=== PATIENT | female | born 1940 | race Two or more races ===

== ENCOUNTER 2025-06-05 14:57 | Emergency (ER) | payer MEDICARE, MEDICAID, SELFPAY ==
[2025-06-05 14:59] VITALS: BMI 27.6
[2025-06-05 15:32] VITALS: BP 142/91; PULSE 67; RESP 18; TEMP 36.3; O2SAT 95
--- NOTE | 2025-06-05 15:43 | EKG_ITS ---
[facility] Test Date: 2025-06-05 Pat Name: MICHAEL GUTIÉRREZ Department: Room: - Gender: Female Delivery Merchandiser: : 1940 Requested By: Enrique Lewis Order Number: [id number] Reading MD: Enrique Lewis Measurements Intervals May Rate: 69 P: 9 CO: 173 QRS: -48 QRSD: 80 T: 29 QT: 369 QTc: 397 Interpretive Statements SINUS RHYTHM LEFT AXIS DEVIATION [QRS AXIS < -30] ANTERIOR MYOCARDIAL INFARCTION , OF INDETERMINATE AGE [40+ ms Q WAVE AND/OR ST/T ABNORMALITY IN V3/V4] INFERIOR MYOCARDIAL INFARCTION , PROBABLY OLD [40+ ms Q WAVE AND/OR ST/T ABNORMALITY IN II/aVF] No previous ECG available for comparison /[id number]/[email or web address]/[id number]
--- NOTE | 2025-06-05 15:43 | XR_ITS ---
Examination: CT brain head without contrast. 2-D sagittal coronal reconstructions Date and time of exam: June 05, 2025, 1649 hours COMPARISON: September 09, 2013 INDICATIONS: Ground-level fall today with injury to the head, head pain CTDI: vol (mGy): 48 DLP: (mGycm): 923 Technique: Multiple CT axial sections of the brain have been obtained, 5 mm slice thickness. Contrast has not been administered. 2-D sagittal, coronal reconstructions have been obtained Low dose protocols were performed. One or more of the following dose reduction techniques were used; automated exposure control, adjustment of the mA and/or KV according to patient size, use of iterative reconstruction technique. Findings: No significant ventricular enlargement. Intra-axial or extra-axial hemorrhage density is not seen. No mass effect or midline shift Basal cisterns are not remarkable. Fourth ventricle is midline. Cranial vault intact. Impression: Negative for acute hemorrhage, mass effect or midline shift
--- NOTE | 2025-06-05 15:52 | XR_ITS ---
Examination: CT maxillofacial, without intravenous contrast. 2-D sagittal reconstructions. 3-D reconstructions. Date and time of exam: June 05, 2025, 1649 hours INDICATIONS: Ground-level fall today with injury to the face, facial pain CTDI: vol (mGy): 26.1 DLP: (mGycm): 475 Technique: Multiple axial images of maxillofacial region, 3.0 mm slice thickness. 2-D sagittal and coronal reconstructions. 3-D reconstructions. Low dose protocols were performed. One or more of the following dose reduction techniques were used; automated exposure control, adjustment of the mA and/or KV according to patient size, use of iterative reconstruction technique. Findings: Frontal bones frontal sinuses intact Orbital rims intact No nasal bone fracture. No depression zygomatic arches. Maxilla and the mandible intact No soft tissue facial hematoma IMPRESSION: No acute facial fracture.
--- NOTE | 2025-06-05 15:52 | XR_ITS ---
Examination: CT cervical spine without contrast 2-D sagittal reconstructions 2-D coronal reconstructions 3-D reconstructions. Exam date and time: June 05, 2025, 1649 hours INDICATIONS: Ground-level fall today with injury to the neck, neck pain CTDI:vol (mGy) 15.8 DLP: (mGycm) 316 Technique: Multiple 2 mm axial sections of the cervical spine have been obtained. The coronal and sagittal reconstructions have been obtained. 3-D reconstructions have been obtained. Low dose protocols were performed. One or more of the following dose reduction techniques were used; automated exposure control, adjustment of the mA and/or KV according to patient size, use of iterative reconstruction technique. Findings: Axial sections demonstrate intact base of the skull. C1 exhibit satisfactory relationship to the odontoid. No acute cervical vertebral body fracture seen. Alignment posterior spinous processes satisfactory. Impression: No acute cervical fracture.
[2025-06-05] MEDS: MECLIZINE HCL 25 MG TABLET PO (16:14)
[2025-06-05 16:41] LABS: Alanine Aminotransferase 25 U/L (10-49); Albumin, Serum 5.2 gm/dL (3.4-4.8); Albumin/Globulin Ratio 1.9 (1.2-2.2); Alkaline Phosphatase 62 U/L (46-116); Anion Gap 9 (7-16); Aspartate Amino Transferase 23 U/L (0-34); BUN/Creatinine Ratio 15 Ratio (12-20); Bilirubin,Total 0.9 mg/dL (0.3-1.2); Blood Urea Nitrogen 20 mg/dL (9-23); Calcium 10.2 mg/dL (8.3-10.6); Calcium (Corrected) 10.2 mg/dL (8.5-10.1); Carbon Dioxide 30.3 mMol/L (20.0-31.0); Chloride 101 mMol/L (98-107); Creatinine (Component) 1.3 mg/dL (0.6-1.3); Estimated Creatinine Clearance 30.3 mL/min (>60); Globulin 2.7 gm/dL (2.3-3.5); Glucose 104 mg/dL (74-106); Osmolality,Calculated 282 (275-295); Potassium 4.3 mMol/L (3.4-5.1); Sodium 140 mMol/L (136-145); Total Protein 7.9 gm/dL (5.7-8.2); Troponin I < 0.020 ng/mL (0.0-0.045); eGFR 41 See Note
[2025-06-05 16:47] LABS: Basophils # (Auto) 0.0 Thou/mm3 (0.0-0.2); Basophils % (Auto) 1 % (0-2.5); Eosinophils # (Auto) 0.3 Thou/mm3 (0.0-0.5); Eosinophils % (Auto) 5 % (0-10); Hematocrit 43.8 % (36.0-46.0); Hemoglobin 15.0 g/dL (12.0-16.0); Immature Granulocytes Auto 0.01 Thou/mm3 (0.00-0.00); Lymphocytes # (Auto) 2.7 Thou/mm3 (1.0-4.8); Lymphocytes % (Auto) 42 % (10-50); Mean Corpuscular HGB Conc 34.2 g/dl (31.0-37.0); Mean Corpuscular Hemoglobin 29.1 pg (25.0-35.0); Mean Corpuscular Volume 85 fL (80-100); Monocytes # (Auto) 0.5 Thou/mm3 (0.0-0.8); Monocytes % (Auto) 7 % (0-12); Neutrophils # (Auto) 3.0 Thou/mm3 (1.8-7.7); Neutrophils % (Auto) 46 % (37-80); Nucleated Red Blood Cell # 0.00 Thou/mm3 (0.00-0.00); Nucleated Red Blood Cell % 0 /100 WBC (0); Platelet Count 329 Thou/mm3 (140-440); RDW Standard Deviation 36.9 fL (36.4-46.3); Red Blood Count 5.16 Miln/mm3 (4.00-5.20); White Blood Count 6.5 Thou/mm3 (3.6-11.0)
--- NOTE | 2025-06-05 17:49 | PD.EDDIZZY ---
ED Dizzyness RME/HPI General Chief Complaint: Dizziness Stated Complaint: DIZZINESS S/P FALL ON Time Seen by Provider: 06/05/25 17:22 Arrival date/time: 06/05/25 14:57 84-year-old female patient with significant history of hypertension, came in for evaluation regarding ground-level fall. Patient sustained a ground-level fall 2 days ago, sustained abrasion to the nose. Patient denies any headache no LOC no neck pain no chest pain no other complaint noted. Patient is ambulatory. Patient is not take any blood thinner. Related Data Home Medications ?Medication ?Instructions ?Recorded ?Confirmed BP MED ##0 09/09/13 losartan 100 mg tablet (Cozaar) 100 mg PO BID #0 tabs 09/19/14 omeprazole 40 mg capsule,delayed QDAY ##0 09/19/14 release Allergies Allergy/AdvReac Type Severity Reaction Status Date / Time NKA* Allergy Uncoded 06/05/25 15:02 Review of Systems Review of Systems Narrative Review of Systems: Review of system reviewed and within normal limits except mentioned in HPI ED Exam Narrative Physical exam: VITAL SIGNS: Reviewed. GENERAL APPEARANCE: Alert and interactive, follows commands, no acute distress, HEAD AND FACE: Abrasion noted to the nose ENT: PERRL, pink conjunctivitis, eyelid no trauma, Mucous membrane moist. NECK: Supple, nontender, no nuchal rigidity. CHEST: No tenderness, no crepitus, no paradoxical movement, no retractions. LUNGS: Clear, well ventilated, symmetric, no rales, no wheezing, no ronchi, no stridor, good breath sounds bilaterally. HEART: Regular rate, regular rhythm, no murmur, no gallops. ABDOMEN: Soft, positive bowel sounds, nondistended, no guarding, nontender, no rebound, no masses, RECTAL: Deferred. GENITAL: Deferred. NEUROLOGICAL: Gross motor function intact sensory function intact, Appropriate for age. MUSCULOSKELETAL: low back nontender, full range of motion. EXTREMITIES: Nontender, full range of motion. SKIN: Color pink, dry, no rash, no lacerations, no abrasions, no contusions. LYMPHATICS: Deferred. Course Quality Measures none Orders Category Date Time Status EKG (ED ONLY) *Do not use* NOW Care 06/05/25 15:[address] cervical spine wo con Stat Exams 06/05/25 15:[address] facial bones wo con Stat Exams 06/05/25 15:[address] head/brain wo con Stat Exams 06/05/25 15:43 Completed EKG (ED Only) Stat Exams 06/05/25 15:43 Draft CBC Stat Lab 06/05/25 15:59 Completed CMP [Comprehensive Metabolic Panel] Stat Lab 06/05/25 15:59 Completed Troponin I Stat Lab 06/05/25 15:59 Completed Meclizine HCl [Antivert] Med 06/05/25 15:52 Discontinued 25 mg PO X1 ONE Vital Signs Vital signs: Vital Signs Temperature 97.4 F 06/05/25 15:32 Pulse Rate 67 06/05/25 15:32 Respiratory Rate 18 06/05/25 15:32 Blood Pressure 142/91 H 06/05/25 15:32 Pulse Oximetry (%) 95 06/05/25 15:32 Oxygen Delivery Method Room Air 06/05/25 15:32 Dizziness MDM Narrative MDM Narrative:: 84-year-old female patient with significant history of hypertension, came in for evaluation regarding ground-level fall. Patient sustained a ground-level fall 2 days ago, sustained abrasion to the nose. Patient denies any headache no LOC no neck pain no chest pain no other complaint noted. Patient is ambulatory. Patient is not take any blood thinner. Patient's workup today all came back unremarkable including CBC, CMP, troponin,. CT scan of the head came back normal CT scan of the cervical spine came back unremarkable CT scan of the head came back unremarkable. EKG showed normal sinus rhythm, ventricular rate of 69 bpm, no ST segment elevation depression noted. Results discussed with the patient and family. Patient was noted to be ambulatory not only on something stable for charged home Patient data External records reviewed:: None Clinical information provided by:: patient Social determinants that could affect healthcare access:: none Patient has the following chronic illnesses:: Hypertension How is presenting disease/condition affected by chronic disease/condition?: uneffected by Evaluation data The following diagnostics were reviewed and interpreted by me:: lab results, radiology exam(s) and EKG tracing(s) Lab and/or radiology exams considered but not ordered:: None Interpretation Summary: See results MDM Medications / Prescriptions Medications or Prescriptions considered but not ordered:: None Medication administrations:: Medication Administration History Discontinued Medications Meclizine HCl (Meclizine Hcl 25 Mg Tablet) 25 mg PO X1 ONE Stop: 06/05/25 15:53 Last Admin: 06/05/25 16:14 Dose: 25 mg Documented By: Meclizine Consultations Consultation(s) initiated? (list below): No Diagnosis Dizziness Differential Diagnosis: other (Fall, abrasion nose, intra cranial bleed) Most likely diagnosis given after review of the tests above:: Wound fall, abrasions Admission Indicated Admission indicated?: not indicated Admission Request Was there a request for admission?: No Disposition Plan Disposition Plan: Discharge Discharge Attestation Discharge Attestation: The patient and all family members were given an opportunity to ask questions and understood the discharge instructions. Discharge instructions specifically effects, indications for sooner follow up or return to the emergency department, and the expected course of current diagnosis. Patient condition: Stable Discharge Plan Plan Patient Disposition: HOME (Self Care) Discharge Disposition comment: stable Prescriptions/Referrals Prescriptions/Med Rec: No Action BP MED Qty: 0 omeprazole 40 MG capsule,delayed release(DR/EC) QDAY Qty: 0 losartan [Cozaar] 100 MG tablet 100 mg PO BID Qty: 0 Problem List Clinical Impression: Abrasion of nose, Fall Patient/Caregiver Discharge Instructions Discharge Activity: activity as tolerated Education Materials: ED Abrasions Additional Instructions: Thank you for the opportunity for serving you today. You are stable for discharged . You are advised to: Follow-up with your PCP in 1 to 2 days Return to ED for worsening of symptoms Increase oral fluids Daily dressing with bacitracin as needed Print Language: Singaporean Stand Alone Forms: Roseanne Award Info., Patient Portal Info Letter RASHID/JENN Supervising Physician RASHID/JENN Supervising Physician: MD Darrius
== END 2025-06-05 17:59 | disposition home or self-care (01) ==
LOC: SERX 18:03
PROVIDERS: Physician Assistant; Emergency Provider Emergency Medicine
DX: S00.31XA Abrasion of nose, initial encounter (principal); I10 Essential (primary) hypertension; W18.30XA Fall on same level, unspecified, initial encounter
CPT/HCPCS: 36415; 70450; 70486; 72125; 80053; 84484; 85025; 93005; 99283; A9270